=== PATIENT | male | born 1945 ===

== ENCOUNTER 2019-12-24 10:26 | Emergency (ER) | payer OTHER ==
[~2019-12-24] VITALS: Ht 167.6 cm; Wt 59.9 kg
[~2019-12-24 10:26] MED LIST: OSCILLOCOCCINUM; TESSALON PERLE100 MG PO; TUSSI PRES-B L120 M1 PO; ZITHROMAX TRI-500 MG PO
[2019-12-24] MEDS ORDERED: SKELAXIN800 MG PO (14:39)
[2019-12-24] MEDS ORDERED: VOLTAREN-XR100 MG PO (14:39)
== END 2019-12-24 14:44 ==
LOC: ER 10:26
DX: M62.830 Muscle spasm of back (principal)